=== PATIENT | male | born 1965 | race Caucasian/White ===

== ENCOUNTER → 2018-09-18 | Day surgery (SDC) | payer OTHER ==
[~2018-09-18] MED LIST: CRESTOR10 MG PO; FARXIGA PO; FENTANYL CITRATE/PF 100MCG/2 ML INJ ONE; HYOSCYAMINE 0.125 MG TAB ONE; LEVEMIR100 UNIT/1 SQ; LISINOPRIL10 MG PO; METFORMIN HCL1000 MG PO; MIDAZOLAM HCL 2 MG/2 ML VIAL ONE
--- NOTE | 2018-09-18 19:39 | Operative Report ---
DATE OF PROCEDURE: 09/18/2018 SURGEON: Jose Diallo MD PROCEDURES PERFORMED: Colonoscopy and polypectomy. INDICATION FOR COLONOSCOPY: Colorectal cancer screening, positive Cologuard test. MEDICATIONS: The patient was done under MAC, please see anesthesiologist's note. PROCEDURE IN DETAIL: With the patient in left lateral decubitus position, flexible fiberoptic Olympus colonoscope was inserted into the rectum with ease and advanced all the way to the cecum. Prep overall was suboptimal with some retained stools in the colon. The scope was then withdrawn slowly. Whatever was visualized, the mucosa overlying the cecum, ascending colon, transverse colon, appeared to be within normal limits. One polyp was snared from the descending colon. Diverticular disease was noted in the sigmoid colon. An approximately 1 cm sessile polyp was snared from the sigmoid colon. Two polyps were hot biopsied from the rectum. The scope was then retroflexed into the distal rectum. Small internal hemorrhoids were noted, none of which was actively bleeding. The scope was then straightened out, it was subsequently withdrawn. The patient tolerated the procedure well. IMPRESSION: 1. Suboptimal prep. 2. Descending colon polyp, snared. 3. Diverticulosis. 4. Sigmoid colon polyp, snared. 5. Rectal polyps x2, hot biopsied. 6. Internal hemorrhoids, none actively bleeding. PLAN: Follow up histology. Initiate high-fiber, low-fat diet. Initiate high-fiber supplement. The patient might benefit from a followup colonoscopy in one year considering that the prep was suboptimal. Jose Diallo MD [facility] [place][id number] cc: Damián Carpenter DO
== END | disposition home or self-care (01) ==
LOC: OR 07:46
PROVIDERS: ATTEND Internal Medicine Gastroenterology
DX: Z12.11 Encounter for screening for malignant neoplasm of colon (principal); E11.9 Type 2 diabetes mellitus without complications; E78.5 Hyperlipidemia, unspecified; I10 Essential (primary) hypertension; K63.5 Polyp of colon; K57.30 Diverticulosis of large intestine without perforation or abscess without bleeding; K62.1 Rectal polyp; K64.8 Other hemorrhoids; Z79.4 Long term (current) use of insulin
CPT/HCPCS: 36415; 45384; 45385; 82948; 93005; J2250